=== PATIENT | male | born 1945 | race Caucasian/White ===

== ENCOUNTER 2016-08-31 15:38 | Inpatient (IN) | payer OTHER ==
[2016-08-31] MEDS ORDERED: NS 500 ML IV ONE (15:53)
--- NOTE | 2016-08-31 15:53 | EDPHY ---
HPI/HX/ROS/PE/MDM Narrative: CHIEF COMPLAINT:[] HPI: The patient is a [age,sex] who complains of [complaint]. REVIEW OF SYSTEMS: Aside from elements discussed in the HPI, a comprehensive 10-point review of systems was reviewed and is negative. PMH: SOCIAL HISTORY: PHYSICAL EXAM: General: Patient is alert, in no acute distress. ENT: Eyes are normal to inspection. ENT inspection normal. Neck: Normal inspection. Full range of motion. Respiratory: No respiratory distress. Breath sounds normal bilaterally. Cardiovascular: Regular rate and rhythm. Strong peripheral pulses. Abdomen: The abdomen is nontender to palpation. There are no peritoneal signs. There are normal bowel sounds. Back: Normal to inspection. No tenderness to palpation. Skin: Normal color. No rash. Warm and dry. Extremities: Normal appearance. Full range of motion. Neuro: Oriented x3. Normal motor function. Normal sensory function. Portions of this note were transcribed by an ED scribe. I personally performed the history, physical exam, and medical decision making; and confirm the accuracy of the information in the transcribed note. General Time Seen by Provider: 08/31/16 15:52 Initial Vital Signs: Initial Vital Signs Temperature (C) 36.6 C 08/31/16 15:40 Heart Rate 53 L 08/31/16 15:40 Respiratory Rate 16 08/31/16 15:40 Blood Pressure 155/71 H 08/31/16 15:40 O2 Sat (%) 95 08/31/16 15:40 O2 Delivery Mode Room Air Allergies/Adverse Reactions: SHRIMP Allergy (Severe, Uncoded 08/05/10 12:16) Anaphylaxis Home Medications: Medication Instructions Recorded ASPIRIN 08/31/16 Metoprolol Tartrate 08/31/16 Propafenone HCl 08/31/16 Departure - Departure Referrals: MIKEY MONTGOMERY [Primary Care Provider] - As per Instructions Report Scribed for: Jaylon Shea Report Scribed by: Bradford Hewitt Date of Report: 08/31/16 Time of Report: 15:52
--- NOTE | 2016-08-31 15:57 | CPEKG ---
Heart Rate: 54 RR Interval: 1111 P-R Interval: 220 QRSD Interval: 104 QT Interval: 448 QTC Interval: 425 P [place]: 75 QRS [place]: 88 T Wave [place]: 57 EKG Severity - ABNORMAL ECG - EKG Impression: SINUS RHYTHM EKG Impression: FIRST DEGREE AV BLOCK EKG Impression: CONSIDER RIGHT VENTRICULAR HYPERTROPHY Electronically Signed By: Abimael Bryan 31-Aug-2016 20:53:44
[2016-08-31 16:06] LABS: % IMMATURE GRANULYOCYTES 0.2 % (0.0-1.1); ABSOLUTE IMMATURE GRANULOCYTES 0.01 10^3/uL (0.00-0.10); ADD DIFF? NO; ADD MORPH? NO; ADD SCAN? NO; ATYPICAL LYMPHOCYTE FLAG 0 (0-99); FRAGMENT RBC FLAG 0 (0-99); HEMATOCRIT 42.8 % (40.0-51.0); HEMOGLOBIN 14.5 g/dL (13.7-17.5); LEFT SHIFT FLG 0 (0-99); LIPEMIA HEMOLYSIS FLAG 90 (0-99); MEAN CELL HEMOGLOBIN 33.9 pg (27.9-34.1); MEAN CELL HEMOGLOBIN CONCENTR. 33.9 g/dL (32.4-36.7); MEAN PLATELET VOLUME 11.1 fL (8.7-11.7); PLATELET CLUMPS FLAG 20 (0-99); PLATELET COUNT 151 10^3/uL (150-400); RED BLOOD CELL COUNT 4.28 10^6/uL (4.40-6.38); RED CELL DISTRIBUTION WIDTH 12.1 % (11.5-15.2)
--- NOTE | 2016-08-31 16:12 | EDPHY ---
H & P Time Seen by Provider: 08/31/16 15:52 HPI/ROS: Chief complaint. Chest pain HPI. 71-year-old male here with his and they tell me that they dance many times per week. The were at a dance on Thursday night and got up to do a fast dance. He developed leg weakness and then burning across anterior chest especially on the left side as well as some shortness of breath. There was no radiation. He sat down and rested and symptoms went away. 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 Sat down and rested and symptoms went away. His symptoms are not present now. However this is a new change and even a week ago he had no similar symptoms at with helping bring in band equipment and dancing. He had a stress test on August 08 that was normal. He has a history of atrial fibrillation and in the last 2 weeks was change from diltiazem to metoprolol because of tremor and thought to be possibly medication related. Otherwise not sick. No unusual leg pain or swelling ROS Constitutional. no fever/chills, no weakness Eyes. no problems with vision ENT. no sore throat, no nasal drainage Cardiovascular. Chest discomfort Respiratory. Shortness of breath Abdominal. no abdominal pain, no nausea/vomiting, no diarrhea . no problems urinating MS. Leg weakness Skin. no rash Lymph. no swollen glands Neuro. no headache, no dizziness, no difficulty walking or with speech Past Medical/Surgical History: Past medical history significant for atrial fibrillation with ablation Social History: , nonsmoker, no alcohol Smoking Status: Former smoker Physical Exam: General Appearance: Alert well-developed male mild distress vital signs are stable Eyes: Pupils equal and round no pallor or injection. ENT, Mouth: Mucous membranes are moist. Respiratory: There are no retractions, lungs are clear to auscultation. Cardiovascular: Regular rate and rhythm. Gastrointestinal: Abdomen is soft and nontender, no masses, bowel sounds normal. Neurological: Awake and alert, sensory and motor exams grossly normal. Skin: Warm and dry, no rashes. Musculoskeletal: Neck is supple nontender. Extremities symmetrical, full range of motion. Psychiatric: Patient is oriented X 3, there is no agitation. Constitutional: Initial Vital Signs Temperature (C) 36.6 C 08/31/16 15:40 Heart Rate 53 L 08/31/16 15:40 Respiratory Rate 16 08/31/16 15:40 Blood Pressure 155/71 H 08/31/16 15:40 O2 Sat (%) 95 08/31/16 15:40 O2 Delivery Mode Room Air Allergies/Adverse Reactions: SHRIMP Allergy (Severe, Uncoded 08/05/10 12:16) Anaphylaxis Home Medications: Medication Instructions Recorded ASPIRIN 08/31/16 Metoprolol Tartrate [Lopressor 25 25 mg PO BID 08/31/16 mg (*)] Propafenone HCl [Propafenone HCl 225 mg PO BID 08/31/16 ER] Medical Decision Making - Diagnostics EKG Interpretation: EKG interpreted by me shows normal sinus rhythm with first-degree AV block. Normal axis, QRS. There is no significant ST elevation or depression. The rate is 54 Imaging: Chest x-ray is consistent with COPD but no pneumonia Procedures: IV normal saline, monitor ED Course/Re-evaluation: Re-evaluation 5:15 p.m.--patient is stable and symptom-free. Patient, his , and I reviewed imaging EKG lab results. The patient reiterates to me that this is very unusual in new symptoms of leg weakness chest discomfort with exertion relieved by rest. After discussion with the the plan will be admission further evaluation. They expressed understanding and agreement I consulted and discussed case with Dr. Guzman, hospitalist, who agrees to the admission Differential Diagnosis: I am concerned this is acute coronary syndrome. He has chest discomfort leg weakness with exertion that is resolved by rest. Currently he has a normal workup without evidence of acute OK. I remain concerned about acute coronary syndrome. There is no evidence for pneumonia or pneumothorax - Data Points Laboratory Results: Laboratory Results 08/31/16 15:55 08/31/16 15:55 08/31/16 08/31/16 08/31/16 15:55 15:55 15:55 WBC 5.91 10^3/uL 10^3/uL (3.80-9.50) RBC 4.28 10^6/uL L 10^6/uL (4.40-6.38) Hgb 14.5 g/dL g/dL (13.7-17.5) Hct 42.8 % % (40.0-51.0) MCV 100.0 fL H fL (81.5-99.8) MCH 33.9 pg pg (27.9-34.1) MCHC 33.9 g/dL g/dL (32.4-36.7) RDW 12.1 % % (11.5-15.2) Plt Count 151 10^3/uL 10^3/uL (150-400) MPV 11.1 fL fL (8.7-11.7) Neut % (Auto) 59.0 % % (39.3-74.2) Lymph % (Auto) 28.1 % % (15.0-45.0) [place] % (Auto) 10.3 % % (4.5-13.0) Eos % (Auto) 1.7 % % (0.6-7.6) Baso % (Auto) 0.7 % % (0.3-1.7) Nucleat RBC Rel Count 0.0 % % (0.0-0.2) Absolute Neuts (auto) 3.49 10^3/uL 10^3/uL (1.70-6.50) Absolute Lymphs (auto) 1.66 10^3/uL 10^3/uL (1.00-3.00) Absolute Monos (auto) 0.61 10^3/uL 10^3/uL (0.30-0.80) Absolute Eos (auto) 0.10 10^3/uL 10^3/uL (0.03-0.40) Absolute Basos (auto) 0.04 10^3/uL 10^3/uL (0.02-0.10) Absolute Nucleated RBC 0.00 10^3/uL 10^3/uL (0-0.01) Immature Gran % 0.2 % % (0.0-1.1) Immature Gran # 0.01 10^3/uL 10^3/uL (0.00-0.10) D-Dimer < 0.27 ug/mLFEU ug/mLFEU (0.00-0.50) Sodium 140 mEq/L mEq/L (134-144) Potassium 4.9 mEq/L mEq/L (3.5-5.2) Chloride 104 mEq/L mEq/L (97-110) Carbon Dioxide 27 mEq/l mEq/l (22-31) Anion Gap 9 mEq/L mEq/L (8-16) BUN 19 mg/dL mg/dL (7-23) Creatinine 1.1 mg/dL mg/dL (0.7-1.3) Estimated GFR > 60 Glucose 87 mg/dL mg/dL (70-100) Calcium 9.1 mg/dL mg/dL (8.5-10.4) Troponin I < 0.012 ng/mL ng/mL (0-0.034) NT-Pro-B Natriuret Pep 707 pg/mL H pg/mL (0-125) Medications Given: Discontinued Medications Sodium Chloride (Ns) 500 mls @ 0 mls/hr IV ONCE ONE PRN Reason: As Directed Stop: 08/31/16 15:54 Last Admin: 08/31/16 16:03 Dose: 500 mls Departure - Departure Disposition: [facility] [place] Inpatient Acute Clinical Impression: Chest pain Qualifiers: Chest pain type: unspecified Qualified Code(s): R07.9 - Chest pain, unspecified Condition: Good Referrals: MIKEY MONTGOMERY [Primary Care Provider] - As per Instructions
[2016-08-31 16:24] LABS: ANION GAP 9 mEq/L (8-16); CALCIUM 9.1 mg/dL (8.5-10.4); CARBON DIOXIDE 27 mEq/l (22-31); CHLORIDE 104 mEq/L (97-110); CREATININE 1.1 mg/dL (0.7-1.3); GLOMERULAR FILTRATION RATE > 60; GLUCOSE 87 mg/dL (70-100); POTASSIUM 4.9 mEq/L (3.5-5.2); SODIUM 140 mEq/L (134-144)
[2016-08-31 16:36] LABS: TROPONIN I < 0.012 ng/mL (0-0.034)
[2016-08-31] MEDS ORDERED: ACETAMINOPHEN 325 MG TAB PO PRN (18:21)
[2016-08-31] MEDS ORDERED: ONDANSETRON 4 MG/2 ML VIAL IVP PRN (18:21)
[2016-08-31] MEDS ORDERED: ONDANSETRON DISINTEGRATING 4 MG TAB PO PRN (18:21)
--- NOTE | 2016-08-31 19:19 | GHP ---
[f rep st] HISTORY AND PHYSICAL DATE OF ADMISSION: 08/31/2016 HISTORY OF PRESENT ILLNESS: The patient is a pleasant 71-year-old gentleman with a history of SVT w zulma presents with shortness of breath and burning in his chest. The patient had a stress test on August 08 at [facility] with Dr. Rachid Braun and he was told that was fine. He notes over the last couple of weeks to month, he has been working out at the [employer]. He has found it harder to walk a mile. He has felt that he has gotten more sore and it i s taking him longer. He and his were at a dance on Thursday evening. They were at a dance and they danced a fast danc e and he had some shortness of breath and a burning sensation in his chest that resolved with rest. He was able to return to dancing that evening. Today, he was at a dance constitution party and he was helping t he band set up pushing a cart of equipment up an incline that included amplifiers and other things. He developed weakness in his legs and shortness of breath. It was out of step with symptoms that margareth wilkes has had in the past. He subsequently sought care. He has not had heart failure or symptoms such as PND, orthopnea or lower extremity edema. He has not had palpitations or rapid uncontrolled arrhy thmia of which he is aware. He denies fever, chills, cough, sputum, nausea, vomiting or diarrhea. REVIEW OF SYSTEMS: Complete 10-point review of systems conducted and negative except as noted in th e HPI. PAST MEDICAL HISTORY: 1. SVT. 2. Hyperlipidemia. ALLERGIES: Shrimp. HOME MEDICATIONS: 1. Propafenone. 2. Metoprolol, new as of a couple weeks ago. 3. Previously had been on a diltiazem. 4. Lovastatin. 5. Vitamin C. 6. Aspirin. SOCIAL HISTORY: He is a nonsmoker. Minimal alcohol, lives in [place], enjoys dancing with his wif e. FAMILY HISTORY: Notable for coronary artery disease including fatal heart attack in a brother age 5 0. PHYSICAL EXAMINATION: VITAL SIGNS: Temp 36.6, blood pressure 155/71, pulse 53, breathing 16 times a minute, 95% on room air. GENERAL: In no acute distress. HEENT: Sclerae anicteric. Oropharynx clear. Mucous membranes moist. NECK: Supple without lymphadenopathy or JVD. LUNGS: Clear to aus cultation bilaterally. HEART: S1, S2 without murmurs. ABDOMEN: Soft, nontender, nondistended. L OWER EXTREMITIES: Without edema. Calves nontender. SKIN: Without rash. NEUROLOGIC: Grossly non focal. I discussed the case Dr. Ayad Wilcox and Dr. Abimael Bryan. LABORATORY DATA: White count 5.9, hematocrit 43, platelets are 151,000. D-dimer is less than 0.27. Sodium 140, potassium 4.9, chloride 104, bicarb 27, BUN 19, creatinine 1.1. Glucose is 87, BNP is elevated at 707 with no prior for comparison. Troponin less than 0.012. EKG interpreted by me, shows sinus at 54 with first-degree AV conduction delay. There is questionab le RVH, there are no ST or T-wave changes. I have no prior for comparison. Chest x-ray, interpreted by me, shows no acute cardiopulmonary disease with mild hyperexpanded lungs . ASSESSMENT AND PLAN: 71-year-old gentleman with chest pain and shortness of breath. 1. Chest pain. This is concerning for anginal symptoms. I do acknowledge that he has had a stress test that was negative, however, there are certainly false-negatives that go with this. At this po int in time, will cycle his troponins, make him n.p.o. past midnight. I think he should proceed with angiogram in the morning, the caveat being that if he appears to have uncontrolled arrhythmia overn ight, that is perhaps the etiology. 2. Supraventricular tachycardia, will continue his propafenone and beta dayron. 3. Hyperlipidemia, continue his statin. 4. Hyperinflated lungs. We will follow the patient closely. He does have not have a history of sm oking-related lung disease of which I am aware. 5. Prophylaxis, will provide SCDs at this time. If he is in the hospital for a long period of time , prophylaxis would be indicated. 6. Elevated BNP. I think echocardiogram is in order. I have not ordered it because I wonder if he has not had one recently at [facility]. If he has not, then an echocardiogram can be ordered to cheo. He is not in clinical heart failure. Diuresis is not indicated. /[id number]/MODL
[2016-08-31] MEDS: PROPAFENONE HCL SR 225 MG CAP PO SCH (21:06)
[2016-08-31] MEDS: METOPROLOL TARTRATE 25 MG TAB PO SCH (21:06)
[2016-09-01 04:32] LABS: ANION GAP 5 mEq/L (8-16); CALCIUM 8.7 mg/dL (8.5-10.4); CARBON DIOXIDE 28 mEq/l (22-31); CHLORIDE 109 mEq/L (97-110); CREATININE 0.9 mg/dL (0.7-1.3); GLOMERULAR FILTRATION RATE > 60; GLUCOSE 78 mg/dL (70-100); POTASSIUM 4.2 mEq/L (3.5-5.2); SODIUM 142 mEq/L (134-144)
[2016-09-01 04:42] LABS: TROPONIN I < 0.012 ng/mL (0-0.034)
[2016-09-01] MEDS: METOPROLOL TARTRATE 25 MG TAB PO SCH ×2 (08:33→20:41)
[2016-09-01] MEDS: PROPAFENONE HCL SR 225 MG CAP PO SCH ×2 (08:33→20:41)
[2016-09-01] MEDS: MULTIVITAMINS 1 EACH TAB PO SCH (08:34)
[2016-09-01] MEDS: ASCORBIC ACID 500 MG TAB PO SCH (08:35)
[2016-09-01] MEDS ORDERED: Herbals/Supplements -Info Only PO SCH (09:00)
[2016-09-01] MEDS ORDERED: methylPREDNISolone SOD SUCC 125 MG/2 ML VIAL IVP ONE (09:30)
[2016-09-01] MEDS ORDERED: ASPIRIN EC 325 MG TAB PO ONE (09:30)
[2016-09-01] MEDS ORDERED: DIAZEPAM 5 MG TAB PO ONE (09:30)
[2016-09-01] MEDS ORDERED: FAMOTIDINE 20 MG/NACL 50 ML IV ONE (09:30)
[2016-09-01] MEDS ORDERED: NS 1,000 ML IV ONE (09:30)
--- NOTE | 2016-09-01 10:29 | CPEKG ---
Heart Rate: 48 RR Interval: 1250 P-R Interval: 216 QRSD Interval: 100 QT Interval: 456 QTC Interval: 408 P [place]: 78 QRS [place]: 96 T Wave [place]: 69 EKG Severity - BORDERLINE ECG - EKG Impression: SINUS BRADYCARDIA EKG Impression: Right ventricular conduction defect EKG Impression: No significant change from August 31, 2016 Electronically Signed By: Abimael Barrera 01-Sep-2016 12:16:11
[2016-09-01 10:37] LABS: CHOLESTEROL 153 mg/dL (140-220); CHOLESTEROL/HDL RATIO 3.56 RATIO (1.00-4.97); HIGH DENSITY LIPOPROTEIN 43 mg/dL (40-65); LDL/HDL RATIO 2.09 RATIO (1.00-3.64); LOW DENSITY LIPOPROTEIN 90 mg/dL (80-100); MAGNESIUM 2.2 mg/dL (1.6-2.3); NON-HIGH DENSITY LIPOPROTEIN 110 mg/dL (90-129); TRIGLYCERIDE 100 mg/dL (40-150); VERY LOW DENSITY LIPOPROTEINS 20 mg/dL (8-25)
[2016-09-01] MEDS ORDERED: LIDOCAINE 1% 30 ML SDV ONE (13:24)
[2016-09-01] MEDS ORDERED: HEPARIN 10,000 UNIT/10 ML MDV ONE (13:25)
[2016-09-01] MEDS ORDERED: VERAPAMIL 5 MG/2 ML VIAL ONE (13:25)
[2016-09-01] MEDS ORDERED: fentaNYL 100 MCG/2 ML INJ ONE (13:25)
[2016-09-01] MEDS ORDERED: MIDAZOLAM 2 MG/2 ML VIAL ONE (13:25)
[2016-09-01] MEDS ORDERED: IOPAMIDOL (ISOVUE 370) 100 ML BTL IV ONE ×2 (13:26→14:37)
[2016-09-01] MEDS ORDERED: METOPROLOL TARTRATE 50 MG TAB PO ONE (16:15)
[2016-09-01] MEDS ORDERED: METOPROLOL TARTRATE 50 MG TAB ONE (16:21)
[2016-09-01] MEDS ORDERED: HYDROCODONE/APAP 5/325 TAB PO PRN (17:00)
[2016-09-01] MEDS ORDERED: ATROPINE SULFATE 1 MG/10 ML SYR IVP PRN (17:00)
[2016-09-01] MEDS ORDERED: NITROGLYCERIN 0.4 MG BTL SL PRN (17:00)
--- NOTE | 2016-09-01 17:10 | HOSPPROG ---
Hospitalist Progress Note Assessment/Plan: DIAGNOSES: -EXERTIONAL CHEST PAIN AND DYSPNEA, UNCERTAIN CAUSE -RULED OUT MYOCARDIAL INFARCTION -UNREMARKABLE CORONARY ANGIOGRAPHY -HYPERTENSION UNCONTROLLED -CONCERN FOR POSSIBLE SLEEP APNEA PLANS: -at this point his hypertension is uncontrolled enough particularly with his ongoing symptoms that is indicated to continued titration of blood pressure medication here in the hospital until more controlled obtained -Also at this point he has received very large dose of beta-dayron which is not used to and it would be important to watch that we do not cause significant bradycardia given his age and symptoms on monitoring specialist here overnight -For these reasons will change to inpatient -will order echocardiogram to evaluate for pulmonary hypertension and really assess his nocturnal oximetry here tonight I reviewed with Dr. Joshua Faria in detail today SUBJECTIVE: So far is not having chest pain this afternoon No symptoms at his angiography access In talking with the patient and his they do mention there has been some snoring. The nurses noted hypoxemia during sleep last night and applied oxygen for this reason. He has never been evaluated or tested for sleep apnea OBJECTIVE Vitals reviewed: Worsening hypertension so far with systolic now at 1:00 a.m. 95 despite beta-dayron doses Powder Mixer, my review: Sinus rhythm Exam: alert oriented skin warm dry color ok resps not labored lungs clear BSs heart regular abd soft nondistended nontender, bowel sounds present limbs warm, no edema iv site ok Objective: Vital Signs Temp Pulse Resp BP Pulse Ox 37.0 C 50 L 12 160/87 H 94 09/01/16 11:10 09/01/16 11:10 09/01/16 11:10 09/01/16 11:10 09/01/16 11:10 Laboratory Results 09/01/16 04:00 08/31/16 09/01/16 09/02/16 06:59 06:59 06:59 Intake Total 1250 Balance 1250 ICD10 Worksheet Patient Problems: Problems Problem Status Onset Chest pain Acute
--- NOTE | 2016-09-01 17:16 | PDDXCAT ---
Diagnostic Cath Note - . Date: 09/01/16 B[employer] Ch[employer] Builder: Bienveniod Indication: other (recurrent chest pain on high risk medication s/p normal ETT 4 weeks ago.) - Procedure Access: right wrist Procedure: left heart catheterization, coronary angiography - Materials Left Heart Cath size: 5F Left Heart Cath materials: other (Site Seer. 5 icelandic multipurpose) - Findings-Left Heart Catheterization LM: unobstructed LAD: unobstructed LCX: unobstructed RCA: Atypical superior take off. Unobstructed. EDP: 15 mmHg LVEF: 65 Wall motion: normal Complications: none Estimated blood loss: <50ml Closure method: TR Band Assessment: 1. Atypical origin of the RCA. 2. No focal CAD with normal LV function. 3. Atypical chest pain Plan: Continued medical therapy. Patient Problems: Problems Problem Status Onset Chest pain Acute
--- NOTE | 2016-09-01 17:17 | PDCARCONS ---
Cardiology Consult Reason for Consult: chest pain Chief Complaint: chest pain Requesting Physician: Lai History of Present Illness: 71 yo male, hx. of atrial fibrillation s/p failed ablation on propafenone and Metoprol with several week hx. of exertion back pain/chest pain. Three day history of exertional weakness with profound chest pressure while dancing and subsequent weakness. S/P ETT 4 weeks ago for maintenance of propafenone. CV risk. family hx. hlp.remote tobacco ROS: no chest pain/ SOB/PND, orthopnea. No palpitations, syncope/near syncope. Medications Generic Name Dose Route Start Last Admin Trade Name Freq PRN Reason Stop Dose Admin Pravastatin Sodium 40 mg 09/01/16 18:00 Pravachol PO 02/28/17 17:59 DAILY18 [facility] Acetaminophen 650 mg 08/31/16 18:21 Tylenol PO 02/27/17 18:20 Q4HRS PRN Pain, Mild/Fever, Can Take PO Ascorbic Acid 500 mg 09/01/16 09:00 09/01/16 08:35 Vitamin C PO 02/28/17 08:59 Not Given DAILY [facility] Aspirin 325 mg 09/01/16 18:00 Aspirin PO 02/28/17 17:59 DAILY18 [facility] Atropine Sulfate 1 mg 09/01/16 17:00 Atropine 1 Mg/10 Ml Syringe IVP 02/28/17 16:59 PRN PRN Symptomatic bradycardia Hydrocodone Bitart/Acetaminophen 1 - 2 tab 09/01/16 17:00 [place] 5/325 PO 09/11/16 16:59 Q4HRS PRN Pain, Moderate Metoprolol Tartrate 25 mg 08/31/16 21:00 09/01/16 08:33 Lopressor PO 02/27/17 20:59 25 mg BID [facility] Morphine Sulfate 2 mg 09/01/16 17:00 Morphine IVP 09/11/16 16:59 Q1HR PRN Pain, Severe Multivitamins 1 each 09/01/16 09:00 09/01/16 08:34 Tab-A-Aishwarya PO 02/28/17 08:59 Not Given DAILY [facility] Ondansetron HCl 4 mg 08/31/16 18:21 Zofran IVP 02/27/17 18:20 Q4HRS PRN Nausea/Vomiting, Can't Take PO Propafenone HCl 225 mg 08/31/16 21:00 09/01/16 08:33 Rythmol Sr PO 02/27/17 20:59 225 mg BID IJEOMA History Information - Allergies/Home Medication List Allergies/Adverse Reactions: SHRIMP Allergy (Severe, Uncoded 08/05/10 12:16) Anaphylaxis Home Medications: Ascorbic Acid [Vitamin C 500 mg (*)] 500 mg PO DAILY 08/31/16 [Last Taken Unknown] Aspirin [Aspirin 325 mg (*)] 325 mg PO DAILY18 08/31/16 [Last Taken 08/30/16] Herbals/Supplements -Info Only 1 each PO DAILY 08/31/16 [Last Taken Unknown] Lovastatin 40 mg PO DAILY18 08/31/16 [Last Taken 08/30/16] Metoprolol Tartrate [Lopressor 25 mg (*)] 25 mg PO BID 08/31/16 [Last Taken ] Multivitamins [Multivitamin (*)] 1 each PO DAILY 08/31/16 [Last Taken Unknown] Propafenone HCl [Propafenone HCl ER] 225 mg PO BID 08/31/16 [Last Taken 08/31/16 ] I have personally reviewed and updated: family history, medical history, social history, surgical history - Past Medical History atrial fibrillation, hyperlipidemia - Surgical History Reports: no pertinent surgical hx - Family History Positive for: male first degree with history of premature CAD - Social History Smoking Status: Former smoker Alcohol Use: None Cardiac History - Cardiac History Cardiac Risk Factors: lipidemia Timing/Duration: Days Severity: moderate Severity Scale: 5 Location: substernal, back Activities at Onset: activity Modifying Factors: improves with: rest Associated Symptoms: denies symptoms Physical Exam Temp Pulse Resp BP Pulse Ox 37.0 C 50 L 12 160/87 H 94 09/01/16 11:10 09/01/16 11:10 09/01/16 11:10 09/01/16 11:10 09/01/16 11:10 O2 (L/minute) 2 Constitutional: no apparent distress, appears nourished Eyes: PERRL, anicteric sclera, EOMI Ears, Nose, Mouth, Throat: moist mucous membranes Cardiovascular: regular rate and rhythym, no murmur, rub, or gallop, pulses symmetric bilaterally, No systolic murmur, No carotid bruit Peripheral Pulses: 1+: carotid (R), carotid (L), 2+: femoral (R), femoral (L), dorsalis-pedis (R), dorsalis-pedis (L) Respiratory: no respiratory distress, no rales or rhonchi Gastrointestinal: normoactive bowel sounds, soft, non-tender abdomen, no palpable masses Genitourinary: no bladder fullness Skin: warm, normal color Musculoskeletal: full muscle strength, no muscle tenderness Neurologic: AAOx3, sensation intact bilaterally Psychiatric: interacting appropriately Lymph, Heme, Immunologic: no cervical LAD Lab and Imaging 08/31/16 15:55 09/01/16 04:00 WBC 5.91 10^3/uL (3.80-9.50) 08/31/16 15:55 RBC 4.28 10^6/uL (4.40-6.38) L 08/31/16 15:55 Hgb 14.5 g/dL (13.7-17.5) 08/31/16 15:55 Hct 42.8 % (40.0-51.0) 08/31/16 15:55 MCV 100.0 fL (81.5-99.8) H 08/31/16 15:55 MCH 33.9 pg (27.9-34.1) 08/31/16 15:55 MCHC 33.9 g/dL (32.4-36.7) 08/31/16 15:55 RDW 12.1 % (11.5-15.2) 08/31/16 15:55 Plt Count 151 10^3/uL (150-400) 08/31/16 15:55 MPV 11.1 fL (8.7-11.7) 08/31/16 15:55 Neut % (Auto) 59.0 % (39.3-74.2) 08/31/16 15:55 Lymph % (Auto) 28.1 % (15.0-45.0) 08/31/16 15:55 [place] % (Auto) 10.3 % (4.5-13.0) 08/31/16 15:55 Eos % (Auto) 1.7 % (0.6-7.6) 08/31/16 15:55 Baso % (Auto) 0.7 % (0.3-1.7) 08/31/16 15:55 Nucleat RBC Rel Count 0.0 % (0.0-0.2) 08/31/16 15:55 Absolute Neuts (auto) 3.49 10^3/uL (1.70-6.50) 08/31/16 15:55 Absolute Lymphs (auto) 1.66 10^3/uL (1.00-3.00) 08/31/16 15:55 Absolute Monos (auto) 0.61 10^3/uL (0.30-0.80) 08/31/16 15:55 Absolute Eos (auto) 0.10 10^3/uL (0.03-0.40) 08/31/16 15:55 Absolute Basos (auto) 0.04 10^3/uL (0.02-0.10) 08/31/16 15:55 Absolute Nucleated RBC 0.00 10^3/uL (0-0.01) 08/31/16 15:55 Immature Gran % 0.2 % (0.0-1.1) 08/31/16 15:55 Immature Gran # 0.01 10^3/uL (0.00-0.10) 08/31/16 15:55 D-Dimer < 0.27 ug/mLFEU (0.00-0.50) 08/31/16 15:55 Sodium 142 mEq/L (134-144) 09/01/16 04:00 Potassium 4.2 mEq/L (3.5-5.2) 09/01/16 04:00 Chloride 109 mEq/L (97-110) 09/01/16 04:00 Carbon Dioxide 28 mEq/l (22-31) 09/01/16 04:00 Anion Gap 5 mEq/L (8-16) L 09/01/16 04:00 BUN 16 mg/dL (7-23) 09/01/16 04:00 Creatinine 0.9 mg/dL (0.7-1.3) 09/01/16 04:00 Estimated GFR > 60 09/01/16 04:00 Glucose 78 mg/dL (70-100) 09/01/16 04:00 Calcium 8.7 mg/dL (8.5-10.4) 09/01/16 04:00 Magnesium 2.2 mg/dL (1.6-2.3) 09/01/16 10:10 Troponin I < 0.012 ng/mL (0-0.034) 09/01/16 04:00 NT-Pro-B Natriuret Pep 707 pg/mL (0-125) H 08/31/16 15:55 Triglycerides 100 mg/dL (40-150) 09/01/16 10:10 Cholesterol 153 mg/dL (140-220) 09/01/16 10:10 Cholesterol Risk Factr 0.6 (0.2-1.0) 09/01/16 10:10 LDL Cholesterol, Calc 90 mg/dL (80-100) 09/01/16 10:10 LDL Risk Factor 0.8 (0.2-1.0) 09/01/16 10:10 VLDL Cholesterol 20 mg/dL (8-25) 09/01/16 10:10 Non-HDL Cholesterol 110 mg/dL (90-129) 09/01/16 10:10 HDL Cholesterol 43 mg/dL (40-65) 09/01/16 10:10 LDL/HDL Ratio 2.09 RATIO (1.00-3.64) 09/01/16 10:10 Cholesterol/HDL Ratio 3.56 RATIO (1.00-4.97) 09/01/16 10:10 TSH 3.000 uIU/mL (0.465-4.680) 09/01/16 04:00 Visualized and Interpreted EKG results: Yes A/P Assessment: 1. Atypical chest pain with intermediate cardiac risk 2. Recent inconclusive treadmill 3. Atrial fibrillation with on going need/use of high risk medication. 4. hyperlipidemia. Plan: Definitive diagnosis today with angiogram. On going medical therapy. Past Medical History - Personal History Current Tetanus Diphtheria and Acellular Pertussis (TDAP): Yes - Medical/Surgical History Hx Asthma: No Hx Chronic Respiratory Disease: No Hx Cardiac Disease: Yes Hx Diabetes: No Hx Renal Disease: No Hx Alcoholism: No Hx Cirrhosis: No Hx HIV/AIDS: No Hx Splenectomy or Spleen Trauma: No Other PMH: A-Fib. - Social History Smoking Status: Former smoker Review of Systems - Review of Systems Constitutional: weakness. denies: chills, fever EENTM: no symptoms reported Respiratory: no symptoms reported Cardiac: chest pain. denies: edema, irregular heart rate, lightheadedness, palpitations, syncope Gastrointestinal/Abdominal: no symptoms reported Genitourinary: no symptoms Musculoskelatal: no symptoms Skin: no symptoms Neurological: tremors Hematologic/Lymphatic: no symptoms reported Immunologic/allergic: no symptoms reported
[2016-09-01] MEDS ORDERED: PRAVASTATIN SODIUM 40 MG TAB PO SCH (18:00)
[2016-09-01] MEDS ORDERED: ASPIRIN 325 MG TAB PO SCH (18:00)
[2016-09-02] MEDS: MULTIVITAMINS 1 EACH TAB PO SCH (08:36)
[2016-09-02] MEDS: PROPAFENONE HCL SR 225 MG CAP PO SCH (08:36)
[2016-09-02] MEDS: ASCORBIC ACID 500 MG TAB PO SCH (08:36)
[2016-09-02] MEDS: METOPROLOL TARTRATE 25 MG TAB PO SCH (08:36)
--- NOTE | 2016-09-02 10:41 | PDDCSUM ---
Discharge Summary Discharge Summary: DISCHARGE DIAGNOSES: -SYMPTOMATIC BRADYCARDIA -EXERTIONAL DYSPNEA AND CHEST PAIN FELT MOST LIKELY DUE TO METOPROLOL THERAPY WITH RESULTANT BRADYCARDIA -ANGIOGRAPHICALLY NORMAL CORONARY ARTERIES AT THIS TIME -CHRONIC ATRIAL FIBRILLATION, RATE CONTROLLED CONSULTANTS: Joshua Faria PROCEDURES: Coronary angiography Echocardiography HOSPITAL COURSE SUMMARY: This patient presented to the hospital with 10 days of exertional fatigue dyspnea and chest pain. He rule out for myocardial infarction and had no signs of CHF, and a D-dimer was normal. To highly suspicious symptoms the patient underwent coronary angiography which showed no significant coronary stenoses. He was followed on cardiac/vascular sonographer and was found to have bradycardia in the low 50s and even into the upper 40s at rest. On review of his situation the patient had seen Dr. Rachid Braun 10 days before admission, approximately the time of his onset of symptoms. At that point because the patient had been having some tremor his heart rate control medicine for AFib was changed from diltiazem to metoprolol. At this point it is hypothesized that his symptoms may be due to the metoprolol. Patient's blood pressures were high in the 1st day but normal at this point. His LDL cholesterol is at 90. Here in the hospital patient rule out for myocardial infarction, had no CHF and no significant rhythm issues. He went to angiography which showed normal coronary arteries. Echocardiogram looked good. Reviewed the case in detail with doctors hakeem Gamble and Aparna. At this point it is felt that his presenting symptoms are likely caused by his metoprolol. As recommended by Dr. Braun that we have him switch back to his diltiazem and follow up in 2 weeks for through the clinic. MEDICATION CHANGES: Stop metoprolol Resume diltiazem at prior dose of 120 mg long-acting daily FOLLOW-UP PLAN: Review with Dr. Braun 2 weeks to check on progress and symptoms Greater than 35 minutes bedside and care coordination time today
[2016-09-02 11:13] VITALS: BP 119/62; PULSE 62; RESP 20; TEMP 97.9; O2SAT 96
--- NOTE | 2016-09-02 12:56 | ECHO ---
[id number] + + [address] : : [place] [id number] : : [phone] + + Adult Echocardiographic Report + -----+ :Name: SERENITY PRIETO CStudy Date: 09/02/2016 10:26 AM : : Hospital Admission Number: [id number] Location : 209: :: 1945 Gender: Male Height: 74 in : :Age: 71 yrs Race: WH Weight: 180 lb : :Reason For Study: Exertional dyspnea and chest pain : : BSA: 2.1 meters2 : + -----+ MMode/2D Measurements \T\ Calculations IVSd: 1.2 cm LVIDd: 4.5 cm FS: 40.6 % Ao root diam: LVPWd: 0.99 cm LVIDs: 2.7 cm EDV(Teich): 3.6 cm 94.0 ml LA dimension: ESV(Teich): 4.4 cm 26.8 ml EF(Teich): 71.5 % LVLd ap4: 7.5 cm SV(MOD-sp4): EDV(MOD-sp4): 41.0 ml 64.0 ml LVLs ap4: 6.3 cm ESV(MOD-sp4): 23.0 ml EF(MOD-sp4): 64.1 % Normal Measurement Values: + + :LVIDd (3.5-5.7cm) IVSd (0.6-1.1cm) LVPWd (0.6-1.1cm) Aortic Root (2.0-3.7cm)Left Atrium (1.5-4.0cm): :LV Vol(d) (76-115ml) LV Vol(s) (29-48ml) Ejec Fraction (50-65%)PV Anant (0.6- 1.2m/s) TV Anant (0.4-1.0m/s) : :MV E Anant (0.8-1.0m/s)MV A Anant (0.3-1.0m/s)LVOT Anant (0.7-1.2m/s) Asc Ao Anant ( 0.9-1.8m/s) : + + Doppler Measurements \T\ Calculations MV E max anant: 92.8 cm/sec Ao mean P.1 mmHg TR max anant: 286.4 cm/sec MV A max anant: 44.9 cm/sec Ao V2 mean: 142.8 cm/sec TR max P.8 mmHg MV E/A: 2.1 Ao V2 VTI: 50.3 cm RAP systole: 5.0 mmHg RVSP(TR): 37.8 mmHg Left Ventricle The left ventricle is normal in size. There is normal left ventricular wall thickness. Left ventricular systolic function is normal. Ejection Fraction = 65-70%. E/a wave reversal. No regional wall motion abnormalities noted. Right Ventricle The right ventricle is normal in size and function. Atria The left atrial size is normal. The right atrium is mildly dilated. The interatrial septum is intact with no evidence for an atrial septal defect. Mitral Valve The mitral valve is normal in structure and function. There is no evidence of mitral valve prolapse. There is no mitral valve stenosis. There is mild mitral regurgitation. Tricuspid Valve Normal tricuspid valve. Right ventricular systolic pressure is 35-40mmHg. There is trace tricuspid regurgitation. Aortic Valve The aortic valve is trileaflet. The aortic valve opens well. Severely calcified NCC of the aortic valve. AV max PG is 17mmHG. AV mean PG is 9mmHG. Borderline aortic stenosis. There is no aortic insufficiency. Pulmonic Valve The pulmonic valve is normal in structure and function. Trace pulmonic valvular regurgitation. Great Vessels The aortic root is normal size. Pericardium/Pleural There is no pericardial effusion. Conclusion A complete two-dimensional transthoracic echocardiogram was performed (2D, M-mode, Doppler and color flow Doppler). Left ventricular systolic function is normal. Ejection Fraction = 65-70%. E/a wave reversal. The right atrium is mildly dilated. There is mild mitral regurgitation. There is trace tricuspid regurgitation. Right ventricular systolic pressure is 35-40mmHg. Severely calcified NCC of the aortic valve. AV max PG is 17mmHG. AV mean PG is 9mmHG. Borderline aortic stenosis. Trace pulmonic valvular regurgitation. Final Reading Physician: Rose Martínez signed on 09/02/2016 12:56 PM Ordering Physician: Emmanuel Hoyt Performed By: Johanne Cedeño RDCS
== END 2016-09-02 15:02 | disposition home or self-care (01) | DRG 287 ==
LOC: INTOOBSV 17:40 → F2W 19:41 → OBSVTOIN 09-01 17:11
PROVIDERS: ADMIT Internal Medicine; ATTEND Internal Medicine
PROC: B2111ZZ Fluoroscopy of Multiple Coronary Arteries using Low Osmolar Contrast (ICD-10-PCS; principal; 2016-09-01)
PROC: B2151ZZ Fluoroscopy of Left Heart using Low Osmolar Contrast (ICD-10-PCS; principal; 2016-09-01)
PROC: 4A023N7 Measurement of Cardiac Sampling and Pressure, Left Heart, Percutaneous Approach (ICD-10-PCS; principal; 2016-09-01)
DX: R00.1 Bradycardia, unspecified (principal); R06.00 Dyspnea, unspecified; I10 Essential (primary) hypertension; I48.2 Chronic atrial fibrillation; E78.5 Hyperlipidemia, unspecified; T44.7X5A Adverse effect of beta-adrenoreceptor antagonists, initial encounter
CPT/HCPCS: C1769; G0378; J1200; J1644; J2250; J3010; Q9967

== ENCOUNTER 2017-02-24 10:58 | Day surgery (SDC) | payer OTHER ==
--- NOTE | 2017-02-24 10:15 | PDANEPAE ---
ANE History of Present Illness 72 year old male w/ PMHx of HTN, HLD and Atrial fibrillation presents for PITER & Cardioversion. ANE Past Medical History - Cardiovascular History Hx Hypertension: Yes Hx Arrhythmias: Yes Hx Chest Pain: No Hx Coronary Artery / Peripheral Vascular Disease: No Hx CHF / Valvular Disease: No Cardiovascular History Comment: HTN. Atrial Fibrillation - Pulmonary History Hx COPD: No Hx Asthma/Reactive Airway Disease: No Hx Recent Upper Respiratory Infection: No Hx Oxygen in Use at Home: No Hx Sleep Apnea: No - Endocrine History Hx Diabetes: No Hypothyroid: No Hyperthyroid: No Obesity: no - Renal History Hx Renal Disorders: No - Liver History Hx Hepatic Disorders: No - Neurological & Psychiatric Hx Hx Neurological and Psychiatric Disorders: No - Cancer History Hx Cancer: No - Congenital Disorder History Hx Congenital Disorders: No - GI History GERD: no Gastrointestinal History Comment: Patient reports he gets food/pills caught in "pockets" in posterior pharynx. - Chronic Pain History Chronic Pain: No ANE Review of Systems Review of Systems: - Exercise capacity Exercise capacity: >=4 METS - Systems Muscolosketal: Reports: back pain (Reports thoracic back pain for which he in undergoing accupuncture.) ANE Patient History - Allergies Allergies/Adverse Reactions: SHRIMP Allergy (Severe, Uncoded 08/05/10 12:16) Anaphylaxis - Home Medications Home medications: home medication list seen and reviewed Home Medications: Ascorbic Acid [Vitamin C 500 mg (*)] 500 mg PO DAILY 08/31/16 [Last Taken Unknown] Aspirin [Aspirin 325 mg (*)] 325 mg PO DAILY18 08/31/16 [Last Taken 08/30/16] Herbals/Supplements -Info Only 1 each PO DAILY 08/31/16 [Last Taken Unknown] Lovastatin 40 mg PO DAILY18 08/31/16 [Last Taken 08/30/16] Multivitamins [Multivitamin (*)] 1 each PO DAILY 08/31/16 [Last Taken Unknown] Propafenone HCl [Propafenone HCl ER] 225 mg PO BID 08/31/16 [Last Taken 08/31/16 ] - NPO status NPO Status: no food or drink >8 hours - Anes Hx Anes Hx: slow to awaken from anesthesia - Smoking Hx Smoking Status: Former smoker - Alcohol Use Alcohol Use: Rarely - Family Anes Hx Family Anes Hx: neg - N/A ANE Labs/Vital Signs - Vital Signs Vital Signs: reviewed preoperatively; see RN documention for details ANE Physical Exam - Airway Neck exam: FROM Mallampati Score: Class 2 Mouth exam: poor dentition - Pulmonary Pulmonary: no respiratory distress - Cardiovascular Cardiovascular: regular rate and rhythym - ASA Status ASA Status: II ANE Anesthesia Plan Anesthesia Plan: GA with mask
[2017-02-24] MEDS ORDERED: NS 500 ML IV ONE (11:03)
[2017-02-24] MEDS ORDERED: ATROPINE SULFATE 1 MG/10 ML SYR IVP ONE (11:03)
[2017-02-24] MEDS ORDERED: BENZOCAINE UNIT DOSE SPRAY HURRICAINE MM ONE (11:03)
[2017-02-24] MEDS ORDERED: PROPOFOL 200 MG/20 ML VIAL ONE (11:12)
--- NOTE | 2017-02-24 11:24 | CPEKG ---
Heart Rate: 67 RR Interval: 896 QRSD Interval: 112 QT Interval: 400 QTC Interval: 423 QRS [place]: 92 T Wave [place]: 59 EKG Severity - ABNORMAL ECG - EKG Impression: ATRIAL FLUTTER, A-RATE 288 EKG Impression: INCOMPLETE RIGHT BUNDLE BRANCH BLOCK Electronically Signed By: Rachid Braun 24-Feb-2017 11:42:07
--- NOTE | 2017-02-24 11:25 | PDHPUP ---
History & Physical Update H&P update statement: This history and physical update is based on an assessment of the patient which was completed after admission or registration (within 24 hours), but prior to the surgery/procedure. H&P update: H&P reviewed & patient examined, no change in patient's condition since H&P completed
[2017-02-24] MEDS ORDERED: NALOXONE HCL 0.4 MG/ML INJ IVP PRN (11:31)
[2017-02-24] MEDS ORDERED: fentaNYL 100 MCG/2 ML INJ IVP PRN (11:31)
[2017-02-24] MEDS ORDERED: ONDANSETRON 4 MG/2 ML VIAL IVP PRN (11:31)
[2017-02-24] MEDS ORDERED: LR 500 ML IV PRN (11:31)
[2017-02-24 11:50] LABS: INR 1.36 (0.83-1.16); PROTIME(PATIENT) 16.8 SEC (12.0-15.0)
[2017-02-24 11:51] LABS: APTT 37.4 SEC (23.0-38.0)
[2017-02-24 11:58] LABS: ANION GAP 10 mEq/L (8-16); CARBON DIOXIDE 28 mEq/l (22-31); CHLORIDE 100 mEq/L (97-110); CREATININE 1.2 mg/dL (0.7-1.3); GLOMERULAR FILTRATION RATE 59; GLUCOSE 89 mg/dL (70-100); MAGNESIUM 2.3 mg/dL (1.6-2.3); POTASSIUM 4.6 mEq/L (3.5-5.2); SODIUM 138 mEq/L (134-144)
--- NOTE | 2017-02-24 12:07 | PDTEE1 ---
PITER Cardioversion Procedure Procedure: Electrical Cardioversion, Transesophageal Echo Indications: Atrial Fibrillation Consent: Signed and in Chart Anticoagulation: Eliquis Procedural Details: Pads were placed in anterior-posterior position. PITER probe was advanced and standard images obtained. There is no evidence of left atrial or left atrial appendage thrombus. Synchronized cardioversion attempt #1: 100J Results: Normal sinus rhythm Conclusions: Successful PITER Cardioversion Patient Problems: Problems Problem Status Onset Atrial fibrillation Acute Chest pain Acute
--- NOTE | 2017-02-24 12:23 | CPEKG ---
Heart Rate: 61 RR Interval: 984 P-R Interval: 216 QRSD Interval: 98 QT Interval: 424 QTC Interval: 427 P [place]: 78 QRS [place]: 82 T Wave [place]: 51 EKG Severity - OTHERWISE NORMAL ECG - EKG Impression: SINUS RHYTHM EKG Impression: BORDERLINE RIGHT AXIS DEVIATION Electronically Signed By: Rachid Braun 24-Feb-2017 13:53:10
--- NOTE | 2017-02-24 14:35 | POSTANESTH ---
Post Anesthetic Evaluation Cardiovascular Status: Normal, Stable, Similar to Pre-Op Cond Respiratory Status: Normal, Stable, Similar to Pre-op Cond. Level of Consciousness/Mental Status: Can Participate in Eval Pain Control: Adequate, Prn Tx Ordered Nausea/Vomiting Control: Adequate, Prn Tx Ordered Complications Possibly Related to Anesthesia: None Noted
[2017-02-24] MEDS ORDERED: APIXABAN 5 MG TAB PO SCH (21:00)
--- NOTE | 2017-02-25 16:56 | ECHO ---
[email or web address] [address] [address] Main: [phone] Fax: Transesophageal Echocardiography Name: SERENITY PRIETO MR#: [id number] Study Date: 02/24/2017 Study Time: 11:51 AM Date of : 1945 Age: 72 year(s) Height: ( ) Weight: ( ) BSA: Gender: Male Examination: PITER Indication: Image Quality: Contrast: Requested by: Rachid Braun Heart Rate: Rhythm: BP: / Procedure Staff Ordering Physician: ROSLYN Generator Operator: Johanne Cedeño Reading Physician: Racihd Braun PITER Exam Details Conclusions: ? Borderline left ventricular hypertrophy EF estimate is 65%. ? No thrombus in left appendage. ? Trileaflet aortic valve moderately sclerotic functioning as a bicuspid valve. Proceeded with cardioversion Measurements: Chambers Valvular Assessment AV/MV Valvular Assessment TV/PV Normal Normal Normal Name Value Range Name Value Range Name Value Range Visual EF: 65 Additional Measurements: Findings: Left Ventricle: Borderline left ventricular hypertrophy EF estimate is 65%. Right Ventricle: Left Atrium: An agitated saline study was performed and was negative for intracardiac shunting. Left Atrial Appendage: No thrombus in left appendage. Right Atrium: Patient: SERENITY PRIETO Study Date: 02/24/2017 Page 1 of 2 11:51 AM An agitated saline study was performed and was negative for intracardiac shunting. Mitral Valve: The mitral valve is normal in appearance. Mild to moderate mitral regurgitation. Aortic Valve: Trileaflet aortic valve moderately sclerotic functioning as a bicuspid valve. Tricuspid Valve: Mild tricuspid regurgitation is present. Pulmonic Valve: Trivial pulmonic valve regurgitation. Great Vessels: Pericardium: (No Signature Object) Patient: SERENITY PRIETO Study Date: 02/24/2017 Page 2 of 2 11:51 AM [id number]
== END 2017-02-24 14:00 | disposition home or self-care (01) ==
LOC: FCATH 10:58
PROVIDERS: ATTEND Internal Medicine Cardiovascular Disease
PROC: 5A2204Z Restoration of Cardiac Rhythm, Single (ICD-10-PCS; principal; 2017-02-24)
DX: I48.91 Unspecified atrial fibrillation (principal); R07.9 Chest pain, unspecified
CPT/HCPCS: J2704